=== PATIENT | male | born 1960 | race Two or more races ===

== ENCOUNTER 2019-08-08 10:07 | Outpatient (CLI) | payer BC | END 2019-08-08 23:59 | disposition home or self-care (01) | LOC: CT 10:07 | PROVIDERS: ATTEND Family Medicine | DX: K44.9 Diaphragmatic hernia without obstruction or gangrene (principal); Z87.891 Personal history of nicotine dependence | CPT/HCPCS: 71250-TC ==

== ENCOUNTER 2020-01-31 01:58 | Emergency (ER) | payer BC, OTHER ==
[~2020-01-31] VITALS: Ht 172.7 cm; Wt 86.2 kg
[2020-01-31 02:09] VITALS: BP 138/86
== END 2020-01-31 02:31 | disposition home or self-care (01) ==
LOC: ER 02:03
DX: Z03.818 Encounter for observation for suspected exposure to other biological agents ruled out (principal); R03.0 Elevated blood-pressure reading, without diagnosis of hypertension
CPT/HCPCS: 99283; C9803; U0003

== ENCOUNTER 2020-05-06 01:57 | Emergency (ER) | payer OTHER ==
[~2020-05-06] VITALS: Ht 175.3 cm; Wt 90.7 kg
[2020-05-06 01:59] VITALS: BP 132/64
--- NOTE | 2020-05-06 02:11 | NUR ---
EDISON COLLECTED AND SENT TO LAB
== END 2020-05-06 02:13 | disposition home or self-care (01) ==
LOC: ER 01:57
DX: Z20.828 Contact with and (suspected) exposure to other viral communicable diseases (principal)
CPT/HCPCS: 99283; C9803; U0003

== ENCOUNTER 2020-05-18 23:35 | Emergency (ER) | payer OTHER ==
[~2020-05-18] VITALS: Ht 175.3 cm; Wt 9.1 kg
[2020-05-18 23:36] VITALS: BP 129/75
== END 2020-05-19 00:21 | disposition home or self-care (01) ==
LOC: ER 23:36
DX: Z20.828 Contact with and (suspected) exposure to other viral communicable diseases (principal)
CPT/HCPCS: 99283; C9803; U0003

== ENCOUNTER 2020-06-02 00:35 | Emergency (ER) | payer OTHER ==
[~2020-06-02] VITALS: Ht 175.3 cm; Wt 90.7 kg
[2020-06-02 00:37] VITALS: BP 138/64
== END 2020-06-02 00:57 | disposition home or self-care (01) ==
LOC: ER 00:36
DX: Z20.828 Contact with and (suspected) exposure to other viral communicable diseases (principal)
CPT/HCPCS: 99283; C9803; U0003

== ENCOUNTER 2020-07-16 01:50 | Emergency (ER) | payer OTHER ==
[~2020-07-16] VITALS: Ht 175.3 cm; Wt 90.7 kg
[2020-07-16 01:53] VITALS: BP 125/71
--- NOTE | 2020-07-16 02:01 | NUR ---
COVID TEST SAMPLE COLLECTED AND SENT TO THE LAB.
== END 2020-07-16 02:02 | disposition home or self-care (01) ==
LOC: ER 01:53
DX: Z20.828 Contact with and (suspected) exposure to other viral communicable diseases (principal)
CPT/HCPCS: 99283; C9803; U0003

== ENCOUNTER 2020-07-21 01:12 | Emergency (ER) | payer OTHER ==
[~2020-07-21] VITALS: Ht 175.3 cm; Wt 90.7 kg
== END 2020-07-21 01:32 | disposition home or self-care (01) ==
LOC: ER 01:14
DX: Z20.822 Contact with and (suspected) exposure to COVID-19 (principal)
CPT/HCPCS: 99283; C9803; U0003